=== PATIENT | female | born 1945 | race Caucasian/White ===

== ENCOUNTER 2016-06-06 06:51 | Inpatient (IN) | payer OTHER ==
[~2016-06-06] VITALS: Ht 160 cm; Wt 127.0 kg
[~2016-06-06 06:51] MED LIST: ALEVE220 MG PO; ASCORBIC ACID500 M3 PO; BENADRYL25 MG PO; CELECOXIB200 MG PO; COUMADIN,JANTO2.5 MG PO; COUMADIN,JANTOVE5 MG PO; COUMADIN1 MG PO; COUMADIN3 MG PO; COUMADIN4 MG PO; DOCUSATE SODIU100 MG PO; FIBER GUMMIES1 EACH PO; FOLIC ACID1 MG PO; GUAIFENESIN WI120 M1 PO; IRON325 M1 PO; KLOR-CON 1010 ME1 PO; LASIX20 MG PO; LIPITOR40 MG PO; METHOCARBAMOL500 MG PO; OXAYDO5 MG PO; OXYCODONE HCL10 MG PO; OXYCODONE HCL5 MG PO; PANTOPRAZOLE SO40 MG PO; SENNA PLUS TAB1 EACH PO; THERAGRAN1 TABLET PO; TRICOR145 MG PO; TYLENOL ARTHRI650 MG PO; XARELTO20 MG PO; ZESTRIL,PRINIV2.5 MG PO; ZESTRIL10 MG PO
[2016-06-06 07:58] VITALS: BP 123/57
[2016-06-06 17:45] VITALS: BP 126/63
[2016-06-06 18:03] VITALS: BP 126/63
[2016-06-06 21:55] VITALS: BP 120/53
[2016-06-06 23:43] VITALS: BP 111/56
[2016-06-07 04:15] VITALS: BP 96/94
[2016-06-07 05:54] LABS: HEMATOCRIT 33.1 % (36.0-46.0); MCV 88.3 FL (83-99)
[2016-06-07 06:22] LABS: ANION GAP 8 MEQ/L (2-14); CHLORIDE 104 MEQ/L (99-109); GFR ESTIMATE (CALCULATED) 43 mL/min/; GLUCOSE 103 mg/dL (70-99); SAMPLE HEMOLYSIS CHECK 0; SAMPLE ICTERIC CHECK 0; SAMPLE LIPEMIA CHECK 0; SODIUM 140 MEQ/L (136-147); UREA NITROGEN (BUN) 24 mg/dL (9-23)
[2016-06-07 08:00] VITALS: BP 98/57
[2016-06-07 12:02] VITALS: BP 114/76
[2016-06-07 16:00] VITALS: BP 125/68
[2016-06-08 00:05] VITALS: BP 140/70
[2016-06-08 06:17] LABS: HEMATOCRIT 32.7 % (36.0-46.0); MCV 87.4 FL (83-99)
[2016-06-08 08:24] VITALS: BP 126/68
[2016-06-08] MEDS ORDERED: SENNA PLUS TAB1 EACH PO (08:45)
[2016-06-08] MEDS ORDERED: LIDOCAINE700 MG TD (08:46)
[2016-06-08] MEDS ORDERED: OXYCODONE HCL5 MG PO (08:46)
[2016-06-08] MEDS ORDERED: CELEBREX200 MG PO (19:33)
[2016-06-08] MEDS ORDERED: OXYCODONE HCL10 MG PO (19:34)
== END 2016-06-08 16:05 | DRG 470 ==
LOC: 2SOUTH 06:51 → 3EAST 06:51 → 2SOUTH 10:24 → 3EAST 17:44
PROVIDERS: Orthopaedic Surgery
PROC: 0SRC0J9 Replacement of Right Knee Joint with Synthetic Substitute, Cemented, Open Approach (ICD-10-PCS; principal; 2016-06-06)
PROC: 3E0T3CZ (ICD-10-PCS; principal; 2016-06-06)
DX: M17.11 Unilateral primary osteoarthritis, right knee (principal); I10 Essential (primary) hypertension; E78.00 Pure hypercholesterolemia, unspecified; M06.9 Rheumatoid arthritis, unspecified; Z86.718 Personal history of other venous thrombosis and embolism; Z86.711 Personal history of pulmonary embolism; Z79.01 Long term (current) use of anticoagulants; Z96.652 Presence of left artificial knee joint
CPT/HCPCS: 71010; 80048; 85014; 85018; C1713; J0131; J0690; J1885; J2250; J2405; J2795; J3010; J7050; L1820

== ENCOUNTER 2016-06-08 08:48 | Inpatient (IN) | payer OTHER ==
[~2016-06-08] VITALS: Ht 154.9 cm; Wt 126.0 kg
[~2016-06-08 08:48] MED LIST changes: +LIDOCAINE700 MG TD
[2016-06-08 16:21] VITALS: BP 131/59
[2016-06-08] MEDS ORDERED: CELEBREX200 MG PO (19:33)
[2016-06-08] MEDS ORDERED: OXYCODONE HCL10 MG PO (19:34)
[2016-06-09] VITALS: BP 134/64
[2016-06-09 05:24] VITALS: BP 130/59
[2016-06-09 06:22] LABS: HEMATOCRIT 31.1 % (36.0-46.0); MCH 28.7 PG (29.0-34.0); MCHC 32.8 G/DL (30.0-36.0); MCV 87.6 FL (83-99); MEAN PLAT.VOLUME 11.2 uM^3 (9.5-12.4); PLATELET COUNT 204 K/uL (156-360); RBC DIS.WIDTH-CV 12.7 % (11.8-14.6); RBC DIS.WIDTH-SD 41.2 % (39-53); RED BLOOD COUNT 3.55 M/uL (3.80-5.20)
[2016-06-09 06:49] LABS: ALKALINE PHOSPHATASE 48 IU/L (3-129); ANION GAP 7 MEQ/L (2-14); CHLORIDE 100 MEQ/L (99-109); GFR ESTIMATE (CALCULATED) 58 mL/min/; GLUCOSE 94 mg/dL (70-99); POTASSIUM 4.1 MEQ/L (3.7-5.4); SAMPLE HEMOLYSIS CHECK 0; SAMPLE ICTERIC CHECK 0; SAMPLE LIPEMIA CHECK 0; SODIUM 136 MEQ/L (136-147); TOTAL BILIRUBIN 0.5 MG/DL (0.0-1.0); UREA NITROGEN (BUN) 18 mg/dL (9-23)
[2016-06-09 15:35] VITALS: BP 116/54
[2016-06-10 05:44] VITALS: BP 159/70
[2016-06-10 15:41] VITALS: BP 136/63
[2016-06-11 04:59] VITALS: BP 133/61
[2016-06-11 15:45] VITALS: BP 113/74
[2016-06-12 05:24] VITALS: BP 137/62
[2016-06-12 15:00] VITALS: BP 113/57
[2016-06-13 05:37] VITALS: BP 147/58
[2016-06-13 15:16] VITALS: BP 135/63
[2016-06-14 05:20] VITALS: BP 122/57
[2016-06-14 15:11] VITALS: BP 125/65
[2016-06-15 05:00] VITALS: BP 114/56
[2016-06-15 15:53] VITALS: BP 116/56
[2016-06-16 05:45] VITALS: BP 116/58
[2016-06-16 06:41] LABS: HEMATOCRIT 33.8 % (36.0-46.0); MCH 28.6 PG (29.0-34.0); MCHC 32.5 G/DL (30.0-36.0); RBC DIS.WIDTH-CV 13.2 % (11.8-14.6); RBC DIS.WIDTH-SD 42.3 % (39-53); RED BLOOD COUNT 3.84 M/uL (3.80-5.20); WHITE BLOOD COUNT 6.5 K/uL (4.1-10.2)
[2016-06-16 07:02] LABS: MEAN PLAT.VOLUME 10.1 uM^3 (9.5-12.4); PLATELET COUNT 336 K/uL (156-360)
[2016-06-16 07:09] LABS: ALKALINE PHOSPHATASE 53 IU/L (3-129); ANION GAP 10 MEQ/L (2-14); CHLORIDE 98 MEQ/L (99-109); GFR ESTIMATE (CALCULATED) 52 mL/min/; GLUCOSE 92 mg/dL (70-99); POTASSIUM 4.4 MEQ/L (3.7-5.4); SAMPLE HEMOLYSIS CHECK 0; SAMPLE ICTERIC CHECK 0; SAMPLE LIPEMIA CHECK 0; SODIUM 135 MEQ/L (136-147); TOTAL BILIRUBIN 0.6 MG/DL (0.0-1.0); UREA NITROGEN (BUN) 21 mg/dL (9-23)
[2016-06-16 15:13] VITALS: BP 124/68
[2016-06-17 05:20] VITALS: BP 130/59
[2016-06-17] MEDS ORDERED: SENNA PLUS TAB1 EACH PO (14:35)
[2016-06-17] MEDS ORDERED: ASCORBIC ACID500 M3 PO (14:35)
[2016-06-17] MEDS ORDERED: LIDOCAINE700 MG TD (14:35)
[2016-06-17] MEDS ORDERED: OXYCODONE HCL5 MG PO (14:35)
[2016-06-17] MEDS ORDERED: FOLIC ACID1 MG PO (14:35)
[2016-06-17] MEDS ORDERED: CELEBREX200 MG PO (14:35)
[2016-06-17] MEDS ORDERED: THERAGRAN1 TABLET PO (14:35)
[2016-06-17 15:14] VITALS: BP 118/57
== END 2016-06-17 15:27 | disposition home or self-care (01) | DRG 945 ==
LOC: 3WEST 08:48
PROVIDERS: Physical Medicine & Rehabilitation Pain Medicine
PROC: F07M0ZZ Range of Motion and Joint Mobility Treatment of Musculoskeletal System - Whole Body (ICD-10-PCS; principal; 2016-06-08)
DX: R53.1 Weakness (principal); M25.361 Other instability, right knee; I82.441 Acute embolism and thrombosis of right tibial vein; Z68.43 Body mass index [BMI] 50.0-59.9, adult; M79.81 Nontraumatic hematoma of soft tissue; I10 Essential (primary) hypertension; D50.0 Iron deficiency anemia secondary to blood loss (chronic); E78.5 Hyperlipidemia, unspecified; I87.2 Venous insufficiency (chronic) (peripheral); E66.9 Obesity, unspecified; M17.11 Unilateral primary osteoarthritis, right knee; Z96.652 Presence of left artificial knee joint; Z86.718 Personal history of other venous thrombosis and embolism; Z86.711 Personal history of pulmonary embolism; Z87.440 Personal history of urinary (tract) infections
CPT/HCPCS: 80053; 85027; 93971; 97110 GO; 97530 GP

== ENCOUNTER 2017-09-07 12:28 | Emergency (ER) | payer OTHER ==
[~2017-09-07] VITALS: Ht 160 cm; Wt 125.9 kg
[~2017-09-07 12:28] MED LIST changes: +CELEBREX200 MG PO; +DUREZOL 0.100 DROP/5 LEFT EYE; +ILEVRO1.7 ML LEFT EYE; +REFRESH OPTIVE10 ML BOTH EYES
[2017-09-07 15:07] LABS: HEMATOCRIT 35.6 % (36.0-46.0); HEMOGLOBIN 11.8 G/DL (11.9-15.5); MCH 29.1 PG (29.0-34.0); MCHC 33.1 G/DL (30.0-36.0); MCV 87.9 FL (83-99); PLATELET COUNT 294 K/uL (156-360); RBC DIS.WIDTH-CV 12.6 % (11.8-14.6); RED BLOOD COUNT 4.05 M/uL (3.80-5.20); WHITE BLOOD COUNT 8.9 K/uL (4.1-10.2)
[2017-09-07 15:16] LABS: CHLORIDE 105 mEq/L (99-109); POTASSIUM 4.1 mEq/L (3.7-5.4); SODIUM 140 mEq/L (136-147)
[2017-09-07 15:18] LABS: GLUCOSE 88 mg/dL (70-99)
[2017-09-07 15:22] LABS: CREATININE 0.8 mg/dL (0.6-1.3); GFR ESTIMATE (CALCULATED) > 59 mL/min/
[2017-09-07 15:23] LABS: UREA NITROGEN (BUN) 21 mg/dL (9-23)
[2017-09-07] MEDS ORDERED: KEFLEX500 MG PO (17:18)
[2017-09-07 17:52] VITALS: BP 126/76
== END 2017-09-07 17:52 | disposition home or self-care (01) ==
LOC: EME 12:28
PROVIDERS: Emergency Medicine
DX: L03.116 Cellulitis of left lower limb (principal); L03.115 Cellulitis of right lower limb; R60.0 Localized edema; E66.01 Morbid (severe) obesity due to excess calories; I10 Essential (primary) hypertension; E78.5 Hyperlipidemia, unspecified; Z86.718 Personal history of other venous thrombosis and embolism
CPT/HCPCS: 71046; 80048; 81003; 83880; 85027; 93005; 93970; 99281; 99284